=== PATIENT | female | born 1955 | race Caucasian/White ===

== ENCOUNTER → 2016-10-31 | Outpatient (CLI) | payer OTHER | LOC: FIMAGING 12:04 | DX: Z12.31 Encounter for screening mammogram for malignant neoplasm of breast (principal) | CPT/HCPCS: G0202 ==

== ENCOUNTER → 2016-11-07 | Outpatient (CLI) | payer OTHER | LOC: FIMAGING 12:07 | PROVIDERS: ATTEND Internal Medicine | DX: R92.8 Other abnormal and inconclusive findings on diagnostic imaging of breast (principal) | CPT/HCPCS: G0206 ==

== ENCOUNTER → 2017-09-17 | Outpatient (CLI) | payer OTHER | LOC: FIMAGING 12:45 | PROVIDERS: ATTEND Internal Medicine Rheumatology | DX: M81.0 Age-related osteoporosis without current pathological fracture (principal); E03.9 Hypothyroidism, unspecified; Z78.0 Asymptomatic menopausal state; Z79.890 Hormone replacement therapy; Z87.81 Personal history of (healed) traumatic fracture ==

== ENCOUNTER → 2017-11-23 | Outpatient (CLI) | payer OTHER | LOC: FIMAGING 14:12 | PROVIDERS: ATTEND Internal Medicine | DX: Z12.31 Encounter for screening mammogram for malignant neoplasm of breast (principal) ==

== ENCOUNTER → 2017-12-02 | Outpatient (CLI) | payer OTHER | LOC: FIMAGING 12:13 | PROVIDERS: ATTEND Internal Medicine | DX: R92.8 Other abnormal and inconclusive findings on diagnostic imaging of breast (principal) ==

== ENCOUNTER → 2018-08-13 | Outpatient (CLI) | payer OTHER | LOC: FIMAGING 14:10 | PROVIDERS: ATTEND Nurse Practitioner Obstetrics & Gynecology | DX: N63.20 Unspecified lump in the left breast, unspecified quadrant (principal) ==

== ENCOUNTER 2018-11-26 12:08 | Emergency (ER) | payer OTHER | END 2018-11-26 13:30 | disposition home or self-care (01) ==